=== PATIENT | female | born 1980 | race Two or more races ===

== ENCOUNTER 2016-04-05 12:24 | Emergency (ER) | payer OTHER ==
--- NOTE | 2016-04-05 12:29 | PDOC ---
History of Present Illness - General Chief Complaint: Pain Stated Complaint: COLD, 22 WEEK PREG PAIN RT ABD Time Seen by Provider: 04/05/16 12:29 History Source: Patient Exam Limitations: No Limitations - History of Present Illness Initial Comments: 36 yo F currently approximately 22 WGA with twin gestation presents with cough, congestion, B/L ear pain for past few days. She states that she has had episodes of coughing, one of which led to post-tussive vomiting. After that she developed redness to the R eye. Denies N/V/D, f/c at present. She endorses congestion, which is making it difficult for her to breathe through her nose. No chest pain, SOB. She states that when she has episodes of coughing, she develops pain to the right side of her abdomen. She feels movements. Past History - Past Medical History Allergies/Adverse Reactions: Allergies Allergy/AdvReac Type Severity Reaction Status Date / Time No Known Allergies Allergy Verified 04/05/16 12:25 Home Medications: Ambulatory Orders Amoxicillin/Potassium Clav [Augmentin 875-125 Tablet] 1 each PO BID #14 tablet 04/05/16 Vit Calc,Iron,Folic [ Vitamins] 1 each PO DAILY 04/05/16 Review of Systems - Review of Systems Able to Perform ROS?: Yes Comments:: GENERAL/CONSTITUTIONAL: No fever or chills. No weakness. HEAD, EYES, EARS, NOSE AND THROAT: No change in vision. +Sore throat. +B/L ear pain. CARDIOVASCULAR: No chest pain or shortness of breath. RESPIRATORY: +Cough. No wheezing or hemoptysis. GASTROINTESTINAL: No nausea, vomiting, diarrhea or constipation. GENITOURINARY: No dysuria, frequency, or change in urination. MUSCULOSKELETAL: No joint or muscle swelling or pain. No neck or back pain. SKIN: No rash NEUROLOGIC: No headache, vertigo, loss of consciousness, or change in strength/ sensation. ENDOCRINE: No increased thirst. No abnormal weight change. HEMATOLOGIC/LYMPHATIC: No anemia, easy bleeding, or history of blood clots. ALLERGIC/IMMUNOLOGIC: No hives or skin allergy. *Physical Exam - Physical Exam Comments: GENERAL: Awake, alert, and fully oriented, in no acute distress HEAD: No signs of trauma EYES: PERRLA, EOMI, sclera anicteric, conjunctiva clear ENT: Auricles normal inspection, hearing grossly normal, nares patent, oropharynx clear without exudates. Moist mucosa. R TM with clear effusion. L TM with erythema, purulent effusion. NECK: Normal ROM, supple, no lymphadenopathy, JVD, or masses LUNGS: Breath sounds equal, clear to auscultation bilaterally. No wheezes, and no crackles HEART: Regular rate and rhythm, normal S1 and S2, no murmurs, rubs or gallops ABDOMEN: Soft, nontender, normoactive bowel sounds. No guarding, no rebound. + Gravid uterus c/w dates/twin gestation EXTREMITIES: Normal range of motion, no edema. No clubbing or cyanosis. No cords, erythema, or tenderness NEUROLOGICAL: Cranial nerves II through XII grossly intact. Normal speech, normal gait SKIN: Warm, Dry, normal turgor, no rashes or lesions noted. Medical Decision Making - Medical Decision Making 04/05/16 12:44 Will treat for otitis media and swab for flu. Will discuss with L&D regards further management, as to whether patient to be transferred to [place] for monitoring. 04/05/16 15:01 D/w Dr. Mcdonnell, documentation lead for obgyn. Patient will not require L&D monitoring at this time. Stable for outpatient f/u. *DC/Admit/Observation/Transfer Diagnosis at time of Disposition: Acute otitis media Qualifiers: Otitis media type: suppurative Laterality: left Recurrence: not specified Spontaneous tympanic membrane rupture: without spontaneous rupture Qualified Code(s): H66.002 - Acute suppurative otitis media without spontaneous rupture of ear drum, left ear Upper respiratory infection Qualifiers: URI type: unspecified URI Qualified Code(s): J06.9 - Acute upper respiratory infection, unspecified - Discharge Dispostion Disposition: HOME Condition at time of disposition: Improved Admit: No - Prescriptions Prescriptions: Amoxicillin/Potassium Clav [Augmentin 875-125 Tablet] 1 each PO BID #14 tablet - Patient Instructions Printed Discharge Instructions: Middle Ear Infection Print Language: [place]
[2016-04-05 12:38] VITALS: BP 116/66; PULSE 87; TEMP 98.4; BMI 34.3
[2016-04-05] MEDS ORDERED: AMOX TR/POT CLAV 875MG/125MG TABLETS (FP) PO ONE (12:38)
[2016-04-05] MEDS ORDERED: AMOX TR/POT CLAV 875MG/125MG TABLETS (FP) ONE (12:54)
== END 2016-04-05 15:11 | disposition home or self-care (01) ==
LOC: FER 12:24
DX: O30.002 Twin pregnancy, unspecified number of placenta and unspecified number of amniotic sacs, second trimester (principal); H66.002 Acute suppurative otitis media without spontaneous rupture of ear drum, left ear; J06.9 Acute upper respiratory infection, unspecified
CPT/HCPCS: 76810-TC; 87804; 99283-25